=== PATIENT | male | born 1965 | race Caucasian/White ===

== ENCOUNTER 2024-10-02 16:28 | Inpatient (IN) | payer OTHER, SELFPAY ==
[2024-10-02] VITALS (9 sets, daily range): BP systolic 123–164; BP diastolic 77–144; PULSE 93–103; BMI 20.2; BMI 19.8
[2024-10-02 11:51] LABS: % Basophils 0.8 % (0-2); % Eosinophils 1.7 % (0-6); % Immature Granulocytes 0.6 % (0-0.5); % Lymphocytes 29.4 % (20.5-51.1); % Neutrophils 58.5 % (42.2-75.2); Absolute Eosinophils 0.1 10^3/uL (0-0.7); Absolute Lymphocytes 1.4 10^3/uL (1.2-3.4); Absolute Monocytes 0.4 10^3/uL (0.1-0.6); Absolute Neutrophils 2.8 10^3/uL (1.4-6.5); Hematocrit 43.3 % (39.0-52.0); Hemoglobin 15.6 g/dL (13.0-18.0); Mean Corpuscular Hgb 34.9 pg (27.0-31.0); Mean Corpuscular Volume 96.9 fL (80.0-94.0); Nucleated Red Blood Cells % 0 % (-); Red Blood Cell Count 4.47 10^6/uL (4.70-6.10); Red Cell Dist. Width 12.4 % (11.5-14.5); White Blood Cell Count 4.8 10^3/uL (4.8-10.8)
[2024-10-02 12:09] LABS: ALT (SGPT) 79 U/L (0-50); AST (SGOT) 136 U/L (17-59); Albumin 4.6 g/dl (3.5-5.0); Alkaline Phosphatase 100 U/L (38-126); Blood Urea Nitrogen 11 mg/dl (9-20); Carbon Dioxide 24 mmol/L (22-30); Chloride 111 mmol/L (98-107); Estimated Creatinine Clearance > 125 ml/min; Glucose 89 mg/dl (70-99); Potassium 3.9 mmol/L (3.5-5.1); Sodium 145 mmol/L (135-145); Total Bilirubin 0.6 mg/dl (0.2-1.3); Total Protein 7.2 g/dl (6.3-8.2); eGFR > 60.00
[2024-10-02 12:14] LABS: Mean Platelet Volume 9.4 fL (7.4-10.4); Platelet Count 96 10^3/uL (130-400)
[2024-10-02 12:22] LABS: Alcohol 427 mg/dl; Troponin I < 0.012 ng/ml
--- NOTE | 2024-10-02 13:17 | ED.GENMED ---
History of Present Illness
General
Chief Complaint: Dizziness
Source: patient and spouse (Ex-)
Exam Limitations: none
Time Seen by Provider: 10/02/24 12:53
Nursing documentation reviewed up to this point in time: agreed with
History of Present Illness
History of Present Illness:
58-year-old male with a past medical history of heavy alcohol use, hypertension with poor medication compliance, heavy smoker who presents to the emergency room for evaluation of dizziness. Patient reports chronic heavy alcohol use that he cannot
quantify exactly how much he drinks on a daily basis. He claims his last alcoholic beverage was last night. He says that the reason for presentation is severe dizziness that he says is very unusual for him even in the setting of heavy alcohol use.
He says this has been progressively worsening over weeks but last night room was spinning to the degree that he could not function and ultimately came to the ER this morning. He did have some associated nausea and vomiting over the past few days
in the setting of alcohol use. He reports associated issues with balance. Denies any headache or falls. He denies any focal weakness or numbness. He denies any chest pain or abdominal pain. When asked about his drinking today, patient says that
he thinks he is ready to stop drinking. His ex- says that she believes he is acutely intoxicated today and he has a long history of such. She says that he has been poorly compliant with treatment plans in the past.
Past History
Past History
ED Past Medical History: Other (kidneys stones 12 years ago.)
ED Past Surgical History: None
Social History
Tobacco: Smoker
Alcohol: Occasional
Drug: None
Personal:
Living: with family
Employment: Employed (owns [email or web address])
Family History
Family History: Other (Noncontributory)
Review of Systems
Review of Systems
All Other Systems: ROS reviewed and negative except as documented in HPI and ROS
Respiratory: Denies trouble breathing
Cardiac: Denies chest pain
ABD/GI: Reports nausea and vomiting; Denies abdominal pain
Musculoskeletal: Denies neck pain or back pain
Neurological: Reports dizzy; Denies headache, weakness or numbness
Phy Exam
Physical Exam
Physical Exam:
General: Awake, alert, resting comfortably in the bed
Head: Normocephalic, atraumatic
Eyes: Conjunctiva normal, extraocular movements are intact but he has marked bidirectional nystagmus as well as some vertical nystagmus
Throat: Airway intact, mucous membranes are dry
Neck: Trachea midline, supple without meningismus
Lungs: Clear to auscultation bilaterally, no wheezing, rales, rhonchi
Heart: Regular rate and rhythm, no murmurs, gallops, or rubs
Abd: Soft, non distended, nontender
Neuro: Cranial nerves are intact, speech slightly slurred, motor and sensory intact in all extremities, ambulatory with wide-based gait
Extremities: Atraumatic, warm and well-perfused
Scores
Heart Failure Risk
Heart Failure Risk Score: Not Applicable
Heart Score for Chest Pain Patients
STEMI patient?: Not applicable
Withdrawal Assessment of Alcohol
Withdrawal Assessment Completed?: Not applicable
Course
Orders/Labs/Results
Orders:
Orders
10/02/24 11:11
ECG [Electrocardiogram (*1)] Urgent
Reason for Study: Tachycardia
EKG- Treatment ONCE
10/02/24 11:37
Alcohol Urgent
Complete Blood Count/With Diff Urgent
Comprehensive Metabolic Panel Urgent
Troponin I Urgent
10/02/24 12:53
Thiamine Injection 100 mg IV NOW STA
10/02/24 12:54
0.9% Sodium Chloride 1000 ml [Nss] 1,000 ml IV BOLUS
Ondansetron Injectable [Zofran] 4 mg IV NOW STA
10/02/24 13:12
CT Head W/o Iv Contrast Urgent
Comment:
Reason For Exam: dizziness, nausea
NEUROLOGY CONSULT Urgent
Consulting Provider: Michael Stapleton
Was physician already notified: Yes
10/02/24 13:39
CR Chest - 2 Views Urgent
Comment:
Reason For Exam: cough
10/02/24 14:00
FOLic ACID [Folvite] 1 mg 0.9% Sodium Chloride 50 ml [Nss] 50 ml IV ONCE
Thiamine Injection 500 mg 0.9% Sodium Chloride 250 ml [Nss] 250 ml IV ONCE
Abnormal Lab Results
10/02/24
11:37
RBC 4.47 L 10^6/uL
(4.70-6.10)
MCV 96.9 H fL
(80.0-94.0)
MCH 34.9 H pg
(27.0-31.0)
Plt Count 96 L 10^3/uL
(130-400)
Immature Gran % 0.6 H %
(0-0.5)
Chloride 111 H mmol/L
(98-107)
Creatinine 0.6 L mg/dL
(0.7-1.3)
AST 136 H U/L
(17-59)
ALT 79 H U/L
(0-50)
Alcohol, Quantitative 427 H* mg/dl
10/02/24 11:37
10/02/24 11:37
Vital Signs
Initial and Last Documented VS:
Initial Vital Signs
Temp Pulse Resp BP Pulse Ox
36.8 C 126 20 155/144 97
10/02/24 11:08 10/02/24 11:08 10/02/24 11:08 10/02/24 11:08 10/02/24 11:08
Last Documented Vital Signs
Temp Pulse Resp BP Pulse Ox
36.8 C 94 17 141/90 92
10/02/24 11:08 10/02/24 12:15 10/02/24 12:15 10/02/24 12:00 10/02/24 13:25
MDM/Problems Addressed
Differential Diagnosis Includes:
Acute alcohol intoxication, Warnicke encephalopathy, stroke
MDM/Problems Addressed:
58-year-old male with history of heavy alcohol use presents with progressive dizziness and balance issues�worse than usual last night and today. Hypertensive and tachycardic in triage�vital signs have normalized by my assessment. Physical exam is
as above�notable for marked nystagmus and wide-based gait. He had labs sent in triage including a CBC which shows thrombocytopenia likely related to chronic alcohol use. His CMP shows mild transaminitis again likely related to alcohol use. His
alcohol level today is 427. Likely his symptoms could be from acute alcohol intoxication however he reports worse than typical and broad-based gait and marked nystagmus in the setting of heavy alcohol use could be indicator of Warnicke
encephalopathy. Reasonable to empirically treat with thiamine, folate as well. Provide IV fluids. Can check CT head given his reported balance issues and heavy alcohol use would be high risk for falls, rule out brain bleed. I did discuss with
neurology�agree with thiamine, observation�if symptoms not improving with alcohol clearance they will consult. Will plan to admit to hospitalist service pending CT to monitor for signs of withdrawal and continue with thiamine treatment.
CT head negative for any acute pathology. Patient was having a cough and so we checked a chest x-ray as well which was negative for any acute abnormality. Case discussed with hospitalist for admission to monitor for signs of alcohol withdrawal,
continue thiamine for the time being.
Chronic conditions affecting care:
Alcohol use
Acute Exacerbation and/or Progression of Chronic Illness:
Acutely hypertensive resolved without intervention continue to monitor but no emergent antihypertensives are indicated this point
Acute Exacerbation and/or Progression of Chronic Illness: HTN
*Radiology
Radiology exam reviewed: radiology read reviewed
*Pulse Oximetry
SaO2: 92
Oxygen Mode of Delivery: Room air
Patient hypoxic: no (92%)
*EKG
Interpreted by ED Provider?: Yes
Heart Rate: 104
Rate: tachycardiac
Rhythm: sinus and sinus tachycardia
Rochelle: normal axis
Interval: normal interval
QRS Pattern: normal QRS
Ischemia: no ischemia
*Critical Care Note
Total Time (30-74mins, 75-104mins- exclusive of procedures): Not Applicable
Data Reviewed
Review of Other/Old Records Reveals: Labs and Records
Source: patient, records and spouse
Patient Management
Discussion with other providers: Hospitalist (Discussed with hospitalist) and Broadcast Designer (Discussed with neurology)
Escalation/DeEscalation of care consider admission/obs:
Admission indicated
ED Attending Note
-
Portions of this chart may have been created with voice recognition software.� Occasional wrong word or��sound alike� substitutions may have occurred due to the inherent limitations of voice recognition software.
Discharge Plan
Departure
Patient Disposition: Admit
Date of Disposition: 10/02/24
Time of Disposition: 15:40
Admit to doctor: Nilda
Presentation/result/management discussed w/ accepting MD/DO: Hospitalist
Patient with high blood pressure during this ER visit?: Yes
Discharge Problem:
Acute alcohol intoxication, Dizziness
Prescriptions:
No Action
tamsulosin 0.4 MG capsule
0.4 mg PO DAILY Qty: 30 3RF
Referrals:
Damon Zhu MD [Family Provider, Family Practice]
Interventions
Interventions:
*Risk Screen - Suicide Last Done: 10/02/24 11:39
*Neglect/Abuse Screening Last Done: 10/02/24 11:39
*ED- Fall Risk Assessment Last Done: 10/02/24 11:39
ED- Neurological Assessment Last Done: 10/02/24 11:39
ED- Cardiac Assessment Last Done: 10/02/24 11:39
ED Swallowing Screen Last Done: 10/02/24 11:40
Discharge Date and Time
Print Language: SYRIAC
[2024-10-02] MEDS: NSS 1000 IV ×2 (13:29→18:16)
[2024-10-02] MEDS: ZOFRAN 4 MG IV (13:29)
[2024-10-02] MEDS: FOLVITE 50.2 MG IV (14:00)
[2024-10-02] MEDS: THIAMINE INJECTION 255 MG IV (14:42)
--- NOTE | 2024-10-02 15:56 | HPS.HSE ---
Family Physician
-
Family Physician: Damon Zhu
Chief Complaint
-
dizziness
History of Present Illness
58-year-old male past medical history of alcohol use disorder, hypertension, nephrolithiasis, heavy smoker, presenting with dizziness. Described as vertigo worse when he stands up or moves his head. Ongoing for past several months. No symptoms at
rest. Occasionally has blurry vision.
He reports chronic heavy alcohol use and he cannot quantify how much he drinks daily. His last alcoholic beverage was last night. He drinks at least 5-6 drinks a day. Sometimes more. Reason for presentation is severe dizziness which is unusual
for him even with alcohol use. He has some nausea and vomiting. Denies headache or falls. Denies any focal weakness or numbness. Denies any chest pain or abdominal pain. Denies diarrhea.
Smokes 2 packs of cigarettes per day.
Medical History
Past Medical History
Past Medical History: Reports Other (alcohol use disorder, hypertension, nephrolithiasis, heavy smoker,)
Past Surgical History: Reports None
Social History
Tobacco: Smoker
Alcohol: Daily
Drug: None
Family History
Family History: Not pertinent
Allergies / Home Medications
Allergies reflects when Allergies were last updated in [facility].
Home Medications with original date entered in [facility]
Allergy/Medication List:
Allergies
Allergy/AdvReac Type Severity Reaction Status Date / Time
No Known Allergies Allergy Verified 12/13/20 10:36
Home Medications
tamsulosin 0.4 mg capsule 0.4 mg PO DAILY #30 caps 11/11/20
Review of Systems
-
History Source: Patient
A 12 point ROS was completed and negative except as noted: Yes
Constitutional: Reports No Symptoms
EENT: Reports No Symptoms
Respiratory: Reports No Symptoms
Cardiac: Reports No Symptoms
Abdomen/GI: Reports No Symptoms
: Reports No Symptoms
Musculoskeletal: Reports No Symptoms
Skin: Reports No Symptoms
Neurological: Reports No Symptoms
Endocrine: Reports No Symptoms
Hematologic/Lymphatic: Reports No Symptoms
Psych: Reports No Symptoms
Physical Exam
Vital Signs
Vital Signs
Temp Pulse Resp BP Pulse Ox
98.2 F 94 17 141/90 92
10/02/24 11:08 10/02/24 12:15 10/02/24 12:15 10/02/24 12:00 10/02/24 13:25
Physical Exam
General: Well Developed, Well Nourished and No Apparent Distress
HEENT: NormoCephalic, Moist mucous membranes and Atraumatic
Respiratory: Clear
Cardiac: S1/S2 and Regular Rhythm; No Murmur or Rub
GI: Soft, Non Tender, Non Distended and Normal Bowel Sounds; No Organomegaly
Rectal: Deferred by Provider
Musculoskeletal: No Clubbing, No Cyanosis and No Edema
Skin: No Rash
Neuro: Nonfocal/grossly intact
Laboratory Results
-
10/02/24 11:37
10/02/24 11:37
Laboratory Results
Total Bilirubin 0.6 mg/dl (0.2-1.3) 10/02/24 11:37
AST 136 U/L (17-59) H 10/02/24 11:37
ALT 79 U/L (0-50) H 10/02/24 11:37
Alkaline Phosphatase 100 U/L (38-126) 10/02/24 11:37
Troponin I < 0.012 ng/ml 10/02/24 11:37
Data Reviewed
-
Lab Data: Labs Reviewed by me
Old Records: Reviewed
Impression/Plan
-
IMPRESSION:
PLAN:
# Alcohol withdrawal
# Chronic vertigo likely secondary to severe alcohol use
- Alcohol level 427
- Alcohol withdrawal protocol
- Phenobarbital protocol
- Thiamine and folate
- IV fluids
- High risk for withdrawal
- Check orthostatics
- Neurology was consulted by ER
# Transaminitis secondary to alcohol use
- Continue to monitor
Essential hypertension
Nephrolithiasis
Smoker
- Declined nicotine patch because it does not work
Full code
DVT prophylaxis�heparin
Regular diet
[2024-10-02] MEDS: THIAMINE INJECTION 200 MG IV (18:16)
[2024-10-02] MEDS: PHENOBARBITAL 104 MG IV (18:16)
[2024-10-02] MEDS: HEPARIN 5000 UNITS SC (20:09)
[2024-10-02] MEDS: PHENOBARBITAL 97.5 MG IV (21:55)
[2024-10-03] MEDS: THIAMINE INJECTION 200 MG IV ×2 (00:31→07:36)
[2024-10-03] MEDS: NSS 1000 IV (05:34)
[2024-10-03 07:25] VITALS: BP 123/69; BP 124/72; BP 129/72; PULSE 58; PULSE 65; PULSE 83
[2024-10-03] MEDS: FOLVITE 1 MG PO (07:36)
[2024-10-03] MEDS: PHENOBARBITAL 97.5 MG IV (07:37)
[2024-10-03] MEDS: HEPARIN 5000 UNITS SC (07:39)
--- NOTE | 2024-10-03 08:07 | W.PN.HOSP.TC ---
Today's Communication/Plan
-
d/c
Assessment / Plan
Assessment / Plan
Gen: NAD, AAOx3.
Eyes: EOMI, PERRLA, no scleral icterus.
Neck: supple.
CV: RRR, +S1/S2, no m/r/g.
Resp: CTAB, no rales, wheezes, or rhonchi.
Abd: +BS, soft, NT, ND
Skin: No rashes.
Neuro: CN 2-12 intact, non-focal.
Psych: Normal mood and affect.
CT brain: No acute intracranial abnormality
CXR: No radiographic evidence of acute cardiopulmonary abnormality.
Acute alcohol abuse:
-chronic vertigo likely secondary to severe alcohol use, now resolved
-transaminitis secondary to alcohol use, now resolved
-alcohol level 427 on admission
-was on MSAS protocol (Thiamine/folate/IV Ativan PRN)
-was on Phenobarbital, currently without withdrawal/DTs. No need to continue on d/c (especially if pt is to continue alcohol consumption)
-s/p IV fluids
-Orthostatics POS by HR but BP stable
-Pt encouraged to decrease alcohol intake to the point where he does not consume further alcohol
Other problems:
Essential HTN: Not on any antihypertensive medications prior to admission
Nephrolithiasis
Tobacco abuse disorder: Encourage smoking cessation
FULL/heparin
Dispo: No evidence of acute alcohol withdrawal at this time. Patient is hemodynamically stable and is medically cleared for discharge.
Total time spent on d/c = 35 min. This included today's physical exam, progress note, review of laboratory and diagnostic data, preparation of discharge documents and prescriptions, and discussions about the pt's hospital course and discharge plan
with the patient and other vp medical involved in the patient's care.
Anticipated Discharge: Today
Subjective/Interval History
-
Date of Service: October 03, 2024
Currently denies auditory visual hallucinations, tremor, anxiety, or any other alcohol withdrawal symptoms.
Objective Data
-
Labs:
Laboratory Results
10/03/24
06:00
WBC Pending
Hgb Pending
Hct Pending
Plt Count Pending
Sodium Pending
Potassium Pending
Chloride Pending
Carbon Dioxide Pending
BUN Pending
Creatinine Pending
Glucose Pending
Calcium Pending
Total Bilirubin Pending
AST Pending
ALT Pending
Alkaline Phosphatase Pending
Vital Signs:
Vital Signs
Temp Pulse Resp BP Pulse Ox
98.3 F 83 20 123/77 96
10/02/24 23:20 10/02/24 23:20 10/02/24 23:20 10/02/24 23:20 10/02/24 23:20
I&O
10/02/24 10/03/24 10/04/24
06:59 06:59 06:59
Intake Total 1919
Balance 1919
[2024-10-03 09:07] LABS: % Basophils 0.9 % (0-2); % Eosinophils 0.9 % (0-6); % Immature Granulocytes 0.4 % (0-0.5); % Lymphocytes 13.7 % (20.5-51.1); % Monocytes 9.3 % (1.7-9.3); % Neutrophils 74.8 % (42.2-75.2); Absolute Basophils 0.1 10^3/uL (0-0.2); Absolute Eosinophils 0.1 10^3/uL (0-0.7); Absolute Lymphocytes 0.8 10^3/uL (1.2-3.4); Absolute Monocytes 0.5 10^3/uL (0.1-0.6); Absolute Neutrophils 4.1 10^3/uL (1.4-6.5); Hematocrit 35.1 % (39.0-52.0); Hemoglobin 12.5 g/dL (13.0-18.0); Mean Corp Hgb Conc. 35.6 g/dL (33.0-37.0); Mean Corpuscular Hgb 34.8 pg (27.0-31.0); Mean Corpuscular Volume 97.8 fL (80.0-94.0); Mean Platelet Volume 10.1 fL (7.4-10.4); Nucleated Red Blood Cells % 0 % (-); Platelet Count 101 10^3/uL (130-400); Red Blood Cell Count 3.59 10^6/uL (4.70-6.10); Red Cell Dist. Width 12.4 % (11.5-14.5); White Blood Cell Count 5.5 10^3/uL (4.8-10.8)
[2024-10-03 09:35] LABS: ALT (SGPT) 48 U/L (0-50); AST (SGOT) 69 U/L (17-59); Albumin 3.4 g/dl (3.5-5.0); Alkaline Phosphatase 70 U/L (38-126); Blood Urea Nitrogen 9 mg/dl (9-20); Calcium 7.7 mg/dl (8.4-10.2); Carbon Dioxide 27 mmol/L (22-30); Chloride 104 mmol/L (98-107); Estimated Creatinine Clearance > 125 ml/min; Glucose 95 mg/dl (70-99); Potassium 3.9 mmol/L (3.5-5.1); Sodium 134 mmol/L (135-145); Total Bilirubin 0.9 mg/dl (0.2-1.3); Total Protein 5.6 g/dl (6.3-8.2); eGFR > 60.00
--- NOTE | 2024-10-03 10:37 | CM ---
Patient stable for d/c today. Initial assessment completed. Patient is a 58-year-old male past medical history of alcohol use disorder, hypertension, nephrolithiasis, heavy smoker, presenting with dizziness.
Patient resides w/ brother in a single story home, no steps to enter. Patient is independent in all areas, no DME. No therapy hx. Patient currently works at a [employer] shop. Patient is without medical insurance at this time.
Address, points of contact and insurance verified. Current address is [address] [place]
PCP: Damon Zhu
Pharmacy: [facility]
CM discussed w/ patient if he is interested in any D&A resources, patient denied at this time
Patient's brother will transport home
Plan: Home, no needs
--- NOTE | 2024-10-03 10:51 | W.DCSUMMARY ---
Discharge Summary
Discharge Data
Date of Admission: 10/02/24
Date of Discharge: 10/03/24
-
Pending Results: No
Hospital Course
Primary diagnoses:
Acute alcohol intoxication with vertigo due to alcohol intoxication
Secondary diagnoses:
Essential hypertension
h/o Nephrolithiasis
Tobacco abuse disorder
Consultants:
None
Imaging:
CT brain: No acute intracranial abnormality
CXR: No radiographic evidence of acute cardiopulmonary abnormality.
Hospital course: 58-year-old male who was admitted yesterday afternoon after presenting with a chief complaint of dizziness as outlined in the H&P done on admission. Imaging above and unremarkable. Patient's alcohol level was 427 and he had mild
transaminitis on admission. It was reported he had chronic vertigo likely secondary to severe alcohol use. This resolved by the time of discharge. His transaminitis improved. He was supported with IV fluids. He was also placed on the MSAS
protocol (Thiamine/folate/IV Ativan PRN). He was started on an IV phenobarbital taper. On the day of discharge she was without withdrawal symptoms or DTs. His orthostatics vital signs were positive by HR but his BP was stable. On the day of
discharge she had no acute complaints. He was encouraged to decrease alcohol intake to the point where he does not consume further alcohol. He was discharged in medically stable condition.
Discharge Plan
-
Patient Disposition: Home (Routine Discharge)
Discharge Diagnosis/Procedures: Acute alcohol intoxication with dizziness
Condition: Good
Diet: Regular
Activity: As tolerated
Driving Restrictions: Not until seen by your Dr
Blood Work: BMP and CBC in 1 week, prescription from PCP
Referrals:
Damon Zhu MD [Family Provider, [facility]] - in less than 1 week
Prescriptions:
New
folic acid 1 mg Tablet
1 mg PO DAILY Qty: 0 0RF
thiamine mononitrate (vit B1) 100 mg Tablet
100 mg PO BID Qty: 0 0RF
Discharge Orders:
Discharge Patient (As Directed); Ordered 10/03/24
Ordered By: Usman Peralta
Discharge Date and Time
Print Language: AZERI
[2024-10-03 11:33] VITALS: BP 123/75
== END 2024-10-03 02:00 | disposition home or self-care (01) | DRG 897 ==
LOC: 4 WEST ACU 16:28
PROVIDERS: Emergency Medicine; ADMITTING PHYSICIAN Hospitalist; ATTENDING PHYSICIAN Internal Medicine; EMERGENCY PHYSICIAN Emergency Medicine; FAMILY PHYSICIAN Family Medicine
DX: F10.129 Alcohol abuse with intoxication, unspecified (principal); F10.139 Alcohol abuse with withdrawal, unspecified; I10 Essential (primary) hypertension; F17.210 Nicotine dependence, cigarettes, uncomplicated; R74.01 Elevation of levels of liver transaminase levels; Y90.8 Blood alcohol level of 240 mg/100 ml or more; Z87.442 Personal history of urinary calculi
CPT/HCPCS: 70450; 71046; 80053; 82077; 84484; 85025; 93005; 96361; 96365; 96375; 99285; 99406